=== PATIENT | female | born 1960 | race Caucasian/White ===

== ENCOUNTER 2018-05-07 06:10 | Inpatient (IN) | payer OTHER ==
[~2018-05-07] VITALS: Ht 157.5 cm; Wt 68.0 kg
[~2018-05-07 06:10] MED LIST: ALPR0.25 PO; ATOR1TAB PO
[2018-05-07] MEDS ORDERED: TRANEXAMIC ACID 20 ML ONE (06:52)
[2018-05-07] MEDS: BUPIVACAINE W/ EPINEPH 0.25% INJ 50ML MDV ONE ×2 (06:52→09:35)
[2018-05-07] MEDS: KETOROLAC TROMETH 30 MG/ML 1ML VIAL ONE ×2 (06:54→09:35)
[2018-05-07] MEDS ORDERED: VANCOMYCIN HCL 1000 MG VL ONE (06:54)
[2018-05-07] MEDS ORDERED: MORPHINE SULF(PF) 0.5MG/ML 10ML VIAL ONE (06:56)
[2018-05-07] MEDS ORDERED: ceFAZolin 1GM/50ML 100 ML IV ONE (07:07)
[2018-05-07] MEDS: CELECOXIB 100 MG CAP ONE ×2 (07:07→07:15)
[2018-05-07] MEDS ORDERED: ACETAMINOPHEN IV 100 ML IV ONE (07:07)
[2018-05-07] MEDS: PREGABALIN CAPSULE 75 MG CAP ONE ×2 (07:11→07:15)
[2018-05-07] MEDS ORDERED: PROPOFOL 10 MG/ML 20 ML IV ONE (07:23)
[2018-05-07] MEDS ORDERED: fentaNYL CITRATE 5 ML ONE (07:23)
[2018-05-07] MEDS ORDERED: ROCURONIUM 10MG/ML 10ML VIAL IV ONE (07:23)
[2018-05-07] MEDS ORDERED: MIDAZOLAM HCL 1MG/1ML-2 ML VIAL ONE (07:23)
[2018-05-07] MEDS ORDERED: HYDROmorphone HCL 2 MG/ML VL ONE (08:24)
[2018-05-07] MEDS ORDERED: OXYCODONE W/ ACETAMINOPHEN 5/325MG TABLET PO PRN (10:15)
[2018-05-07] MEDS ORDERED: MORPHINE SULFATE 4 MG/ML SYR/VIAL IV PRN (10:15)
[2018-05-07] MEDS ORDERED: ONDANSETRON HCL 4 MG/2 ML VIAL IV ONE (10:15)
[2018-05-07] MEDS ORDERED: ACETAMINOPHEN 325 MG TAB PO PRN (10:15)
[2018-05-07] MEDS ORDERED: hydrALAZINE HCL 20 MG/ML VL IV PRN (10:15)
[2018-05-07] MEDS ORDERED: PATIENTS OWN MEDICATION (Alprazolam (Xanax) 1 TAB) PO PRN (10:15)
[2018-05-07] MEDS ORDERED: traMADol HCL 50 MG TAB PO PRN (10:15)
[2018-05-07] MEDS ORDERED: ePHEDrine SULFATE 50 MG/ML AMP IV PRN (10:15)
[2018-05-07] MEDS ORDERED: HYDROmorphone HCL 2 MG/ML VL IV PRN (10:15)
[2018-05-07] MEDS ORDERED: NITROGLYCERIN 0.4 MG SL TAB SL PRN (10:15)
[2018-05-07] MEDS ORDERED: ALPRAZolam 0.25 MG TAB PO PRN (10:15)
[2018-05-07] MEDS ORDERED: BISACODYL 5 MG EC TAB PO PRN (10:15)
[2018-05-07] MEDS: LACTATED RINGER'S 1,000 ML IV SCH ×2 (11:49→20:04)
[2018-05-07 13:00] VITALS: BP 105/59
[2018-05-07] MEDS: KETOROLAC TROMETH 30 MG/ML 1ML VIAL IV SCH ×2 (13:44→23:07)
[2018-05-07] MEDS: SODIUM CHLOR 0.9% PF (SALINE LOCK) 10ML VIAL/SYR IV SCH ×2 (13:44→22:00)
[2018-05-07] MEDS: ceFAZolin 1GM/50ML 50 ML IV SCH ×2 (13:44→18:50)
[2018-05-07 17:00] VITALS: BP 115/66
[2018-05-07] MEDS: ONDANSETRON HCL 4 MG/2 ML VIAL IV PRN (20:15)
[2018-05-07] MEDS: MORPHINE SULFATE 4 MG/ML SYR/VIAL IV PRN (21:30)
[2018-05-07 22:00] VITALS: BP 115/58
[2018-05-07] MEDS: DOCUSATE SOD 100 MG CAP PO SCH (22:00)
[2018-05-07] MEDS: oxyCODONE ER 10 MG TAB PO SCH (23:10)
[2018-05-07] MEDS: CIPROFLOXACIN HCL 500 MG TAB PO SCH (23:10)
[2018-05-07] MEDS: ATORVASTATIN 20 MG TAB PO SCH (23:12)
[2018-05-08] MEDS: ceFAZolin 1GM/50ML 50 ML IV SCH (01:00)
[2018-05-08 05:00] VITALS: BP 116/67
[2018-05-08] MEDS: KETOROLAC TROMETH 30 MG/ML 1ML VIAL IV SCH ×3 (05:20→22:48)
[2018-05-08] MEDS: SODIUM CHLOR 0.9% PF (SALINE LOCK) 10ML VIAL/SYR IV SCH ×3 (06:00→22:00)
[2018-05-08] MEDS: LACTATED RINGER'S 1,000 ML IV SCH ×2 (06:31→11:00)
[2018-05-08 07:08] LABS: Basophils # (auto) 0 uL; Basophils % (auto) 0.4 % (0.0-2.0); Eosinophils # (auto) 0 uL; Eosinophils % (auto) 0.2 % (0.0-7.0); Hematocrit 31.1 % (36.0-46.0); Hemoglobin 10.5 g/dL (12.2-16.2); Lymphocytes # (auto) 1.2 uL; Lymphocytes % (auto) 15.9 % (10.0-50.0); Mean Corpuscular Hemoglobin 31.5 pg (28.0-32.0); Mean Corpuscular Hgb Conc. 33.7 g/dL (32.0-36.0); Mean Corpuscular Volume 93.4 fL (80.0-100.0); Monocytes # (auto) 0.6 uL; Monocytes % (auto) 8.4 % (0.0-12.0); Neutrophils # (auto) 5.5 uL; Neutrophils % (auto) 75.1 % (37.0-80.0); Platelet Count (auto) 156 10^3/uL (140-450); Red Blood Cells 3.33 10^6/uL (4.0-5.20); Red Cell Distribution Width 13.7 % (11.8-14.3); White Blood Cell 7.4 10^3/uL (4.4-10.8)
[2018-05-08 07:10] LABS: Potassium 3.6 mmol/L (3.5-5.1)
[2018-05-08 07:19] LABS: Albumin 2.8 g/dL (3.4-5.0); BUN/Creatinine Ratio 10.3; Calcium 8.3 mg/dL (8.5-10.1)
[2018-05-08 07:22] LABS: Bilirubin, Total 0.6 mg/dL (0.2-1.0); Total Protein 5.5 g/dL (6.4-8.2)
[2018-05-08] MEDS ORDERED: ceFAZolin 1GM/50ML 50 ML IV SCH (07:45)
[2018-05-08 09:00] VITALS: BP 105/60
[2018-05-08] MEDS: ONDANSETRON HCL 4 MG/2 ML VIAL IV PRN ×2 (09:53→22:45)
[2018-05-08] MEDS ORDERED: PATIENTS OWN MEDICATION (Atorvastatin Calcium 1 TAB) PO SCH (10:00)
[2018-05-08] MEDS: CIPROFLOXACIN HCL 500 MG TAB PO SCH (11:05)
[2018-05-08] MEDS: ENOXAPARIN SOD 40 MG/0.4 ML SYRINGE SC SCH (11:05)
[2018-05-08] MEDS: DOCUSATE SOD 100 MG CAP PO SCH ×2 (11:06→22:47)
[2018-05-08] MEDS: oxyCODONE ER 10 MG TAB PO SCH ×2 (11:07→22:47)
[2018-05-08 13:00] VITALS: BP 113/72
[2018-05-08 17:00] VITALS: BP 130/71
[2018-05-08] MEDS: MORPHINE SULFATE 4 MG/ML SYR/VIAL IV PRN (21:30)
[2018-05-08 22:00] VITALS: BP 116/56
[2018-05-08] MEDS: ATORVASTATIN 20 MG TAB PO SCH (22:46)
[2018-05-09] MEDS: LACTATED RINGER'S 1,000 ML IV SCH (01:18)
[2018-05-09 05:30] VITALS: BP 125/66
[2018-05-09] MEDS: SODIUM CHLOR 0.9% PF (SALINE LOCK) 10ML VIAL/SYR IV SCH ×2 (06:00→14:00)
[2018-05-09] MEDS: KETOROLAC TROMETH 30 MG/ML 1ML VIAL IV SCH ×2 (06:00→14:00)
[2018-05-09 08:00] VITALS: BP 128/64
[2018-05-09 08:12] LABS: Hematocrit 31.8 % (36.0-46.0); Hemoglobin 10.5 g/dL (12.2-16.2)
[2018-05-09 09:01] VITALS: BP 128/64
[2018-05-09] MEDS: DOCUSATE SOD 100 MG CAP PO SCH (10:30)
[2018-05-09] MEDS: ENOXAPARIN SOD 40 MG/0.4 ML SYRINGE SC SCH (10:31)
[2018-05-09] MEDS: oxyCODONE ER 10 MG TAB PO SCH (10:31)
[2018-05-09 12:09] VITALS: BP 129/71
[2018-05-09 12:49] VITALS: BP 129/71
== END 2018-05-09 15:11 | disposition home health service (06) | DRG 470 ==
LOC: SUR 06:10 → TELE-CENTR 06:11
PROVIDERS: ADMIT Orthopaedic Surgery Adult Reconstructive Orthopaedic Surgery; ATTEND Internal Medicine
PROC: 0SRB06Z Replacement of Left Hip Joint with Oxidized Zirconium on Polyethylene Synthetic Substitute, Open Approach (ICD-10-PCS; principal; 2018-05-07 06:45)
DX: M16.12 Unilateral primary osteoarthritis, left hip (principal); E78.5 Hyperlipidemia, unspecified; F41.9 Anxiety disorder, unspecified; M21.70 Unequal limb length (acquired), unspecified site
CPT/HCPCS: 36415; 72170; 73501; 80053; 80061; 83735; 85014; 85018; 85025; 86850; 86900; 86901; 87081; A4565; G0378; J0131; J0690; J1885; J2250; J2405; J2704

== ENCOUNTER 2018-05-20 22:09 | Inpatient (IN) | payer OTHER ==
[2018-05-19] MEDS: MIDAZOLAM DRIP 50 mg/50mL 50 ML IV SCH (22:50)
[~2018-05-20] VITALS: Ht 160 cm; Wt 75.3 kg
[2018-05-20 22:49] LABS: Hemoglobin 11.4 g/dL (12.2-16.2); Platelet Count (auto) 438 10^3/uL (140-450); Red Cell Distribution Width 16.2 % (11.8-14.3)
[2018-05-20 22:51] LABS: Hematocrit 38.6 % (36.0-46.0); Mean Corpuscular Hemoglobin 30.7 pg (28.0-32.0); Mean Corpuscular Hgb Conc. 29.4 g/dL (32.0-36.0); Mean Corpuscular Volume 104.4 fL (80.0-100.0); White Blood Cell 21.8 10^3/uL (4.4-10.8)
[2018-05-20] MEDS ORDERED: MIDAZOLAM DRIP 50 mg/50mL 50 ML IV ONE (22:51)
[2018-05-20 22:55] LABS: Basophils % (manual) 0 (0.0-2.0); Blast Cells 0; Eosinophils % (manual) 0 (0-7); Promyelocytes % 0; Reactive Lymphocytes 0
[2018-05-20 23:04] LABS: INR 1.15 (0.9-1.15); Partial Thromboplastin Time 46.4 sec (23.78-33.04); Prothrombin Time 12.2 sec (9.27-12.13)
[2018-05-20 23:08] LABS: Albumin 1.9 g/dL (3.4-5.0); BUN/Creatinine Ratio 11.9; Calcium 8.4 mg/dL (8.5-10.1); Potassium 4.5 mmol/L (3.5-5.1)
[2018-05-20 23:11] LABS: Bilirubin, Total 0.4 mg/dL (0.2-1.0); Total Protein 4.8 g/dL (6.4-8.2)
[2018-05-20 23:15] LABS: Band Neutrophils % (manual) 42; Lymphocytes % (manual) 12 (10.0-50.0); Metamyelocytes % 2; Monocytes % (manual) 5 (0-12); Myelocytes % 1
[2018-05-20] MEDS ORDERED: PANTOPRAZOLE 80 MG in SODIUM CHL 0.9% 60 ML IV ONE (23:45)
[2018-05-20] MEDS ORDERED: PANTOPRAZOLE 40 MG/10 ML VIAL IV ONE (23:45)
[2018-05-21] VITALS (60 sets, daily range): BP systolic 60–151; BP diastolic 31–113
[2018-05-21] MEDS ORDERED: PANTOPRAZOLE 40 MG/10 ML VIAL IV ONE (00:33)
[2018-05-21] MEDS ORDERED: MIDAZOLAM DRIP 50 mg/50mL 50 ML IV ONE (00:34)
[2018-05-21 01:09] LABS: Lactic Acid w/Reflex 12.5 mmol/L (0.4-2.0)
[2018-05-21] MEDS ORDERED: CEFTRIAXONE SODIUM 2 GM in D5W 5% 50 ML IV ONE (01:15)
[2018-05-21] MEDS ORDERED: ONDA4TAB5 PO (01:49)
[2018-05-21] MEDS ORDERED: PERCOT PO (01:49)
[2018-05-21] MEDS: MIDAZOLAM DRIP 50 mg/50mL 50 ML IV SCH ×3 (02:00→23:38)
[2018-05-21] MEDS ORDERED: cefTRIAXone SOD 1,000 MG VL ONE (03:05)
[2018-05-21] MEDS ORDERED: PHYTONADIONE (VIT K)10 MG/ML 1ML VIAL SUBCUT ONE (03:30)
[2018-05-21] MEDS: NOREPINEPHRINE 8 MG/250ML KIT 250 ML IV SCH ×4 (03:59→15:33)
[2018-05-21] MEDS ORDERED: MORPHINE SULFATE 4 MG/ML SYR/VIAL IV PRN (04:00)
[2018-05-21] MEDS ORDERED: SODIUM CHLORIDE 0.9% 1,000 ML IV SCH ×3 (04:00→20:00)
[2018-05-21] MEDS ORDERED: SODIUM CHLORIDE 0.9% 1,000 ML IV ONE (04:00)
[2018-05-21] MEDS ORDERED: DEXTROSE (50%) 50ML SYRG IV PRN (04:00)
[2018-05-21] MEDS ORDERED: NITROGLYCERIN 0.4 MG SL TAB SL PRN (04:00)
[2018-05-21] MEDS ORDERED: ACETAMINOPHEN 325 MG TAB PO PRN (04:00)
[2018-05-21] MEDS ORDERED: VANCOMYCIN PER PHARMACY 0 MG IV SCH (04:00)
[2018-05-21] MEDS ORDERED: ONDANSETRON HCL 4 MG/2 ML VIAL IV PRN (04:00)
[2018-05-21] MEDS ORDERED: TEMAZEPAM 15 MG CAP PO PRN (04:00)
[2018-05-21] MEDS ORDERED: ALBUTEROL SULF 2.5 MG/0.5ML(0.5%) NEB SOLN NEB PRN (04:00)
[2018-05-21] MEDS ORDERED: VANCOMYCIN 1GM/250ML 250 ML IV ONE (04:15)
[2018-05-21 04:24] LABS: Basophils # (auto) 0.1 uL; Basophils % (auto) 0.3 % (0.0-2.0); Eosinophils # (auto) 0 uL; Hematocrit 34.1 % (36.0-46.0); Hemoglobin 10.9 g/dL (12.2-16.2); Lymphocytes # (auto) 1.1 uL; Lymphocytes % (auto) 5.3 % (10.0-50.0); Mean Corpuscular Hemoglobin 30.4 pg (28.0-32.0); Monocytes # (auto) 0.9 uL; Monocytes % (auto) 4.3 % (0.0-12.0); Neutrophils # (auto) 19.5 uL; Neutrophils % (auto) 90.1 % (37.0-80.0); Nucleated Red Blood Cells % 0.3 %; Platelet Count (auto) 332 10^3/uL (140-450); Red Blood Cells 3.59 10^6/uL (4.0-5.20); Red Cell Distribution Width 14.4 % (11.8-14.3); White Blood Cell 21.6 10^3/uL (4.4-10.8)
[2018-05-21 04:25] LABS: Albumin 1.7 g/dL (3.4-5.0); BUN/Creatinine Ratio 16.4; Calcium 6.5 mg/dL (8.5-10.1)
[2018-05-21 04:30] LABS: Bilirubin, Total 0.3 mg/dL (0.2-1.0)
[2018-05-21] MEDS: PIPERACILLIN-TAZOB 2.25GM 50 ML IV SCH ×4 (04:30→22:22)
[2018-05-21] MEDS ORDERED: PANTOPRAZOLE 80 MG in SODIUM CHL 0.9% 60 ML IV SCH ×2 (05:00→10:00)
[2018-05-21] MEDS: POTASSIUM CHL 20MEQ/100ML 100 ML IV SCH ×2 (05:30→09:37)
[2018-05-21] MEDS: ACCU-CHEK COMFORT CURVE STRIP VI SCH ×3 (05:45→18:00)
[2018-05-21] MEDS: InsuLIN REG 1unit/0.01ml Soln (100units/ml) SC SCH ×3 (05:46→18:00)
[2018-05-21] MEDS ORDERED: ALBUMIN 5% 250 ML IV ONE ×2 (06:36→07:00)
[2018-05-21] MEDS ORDERED: VASOPRESSIN 50 UNITS in D5W 5% 247.5 ML IV SCH (07:15)
[2018-05-21] MEDS ORDERED: SODIUM BICARBONATE 8.4 % INJ 50ML VIAL IV ONE (08:01)
[2018-05-21] MEDS ORDERED: SODIUM BICARBONATE 50ML VIAL 100 ML in SOD CHL 0.45% 1,000 ML IV SCH (08:15)
[2018-05-21] MEDS ORDERED: PANTOPRAZOLE 40 MG TAB PO SCH (10:00)
[2018-05-21] MEDS ORDERED: VASOPRESSIN 20 UNIT/ML ONE (11:59)
[2018-05-21] MEDS ORDERED: VASOPRESSIN 50 UNITS in SODIUM CHL 0.9% 247.5 ML IV SCH ×5 (12:30→14:00)
[2018-05-21] MEDS ORDERED: fentaNYL Drip 2500mCg/250mlNS 250 ML IV SCH (12:40)
[2018-05-21] MEDS ORDERED: FLUCONAZOLE 200MG/100ML 100 ML IV ONE (12:45)
[2018-05-21] MEDS ORDERED: fentaNYL Drip 2500mCg/250mlNS 250 ML IV ONE (12:47)
[2018-05-21] MEDS ORDERED: ATROPINE SULF 1 MG/10ml SYR IV ONE (13:10)
[2018-05-21] MEDS ORDERED: EPINEPHrine HCL 1 MG/10 ML SYRG IV ONE (13:10)
[2018-05-21] MEDS ORDERED: SODIUM BICARBONATE 8.4% INJ 50ML SYRINGE IV ONE (13:10)
[2018-05-21] MEDS ORDERED: NOREPINEPHRINE BITARTRATE 32 MG in D5W 5% 218 ML IV SCH (16:35)
[2018-05-21] MEDS ORDERED: PHENYLEPHRINE INJ 80 MG in SODIUM CHL 0.9% 250 ML IV SCH (16:35)
[2018-05-21] MEDS ORDERED: PHENYLEPHRINE IV 250 ML IV ONE (16:42)
[2018-05-21] MEDS ORDERED: SOD CHL 0.45% 1,000 ML IV SCH (17:15)
[2018-05-21] MEDS: NOREPINEPHRINE BITARTRATE 32 MG in SODIUM CHL 0.9% 218 ML IV SCH ×2 (17:15→23:49)
[2018-05-21] MEDS ORDERED: ACETAMINOPHEN 650 mg PER 20 mL UD ONE (17:21)
[2018-05-21] MEDS ORDERED: ACETAMINOPHEN 650 mg PER 20 mL UD GT PRN (17:30)
[2018-05-21 17:53] LABS: Protein, Urine 202.3 mg/dL (0.0-11.9)
[2018-05-21] MEDS ORDERED: SODIUM CHLORIDE 0.9% 2,250 ML IV ONE (18:00)
[2018-05-21 18:09] LABS: Urine Amorphous Crystal FEW /hpf (None Seen); Urine Bacteria FEW /hpf (None Seen); Urine Blood 3+ /uL (Negative); Urine Hyaline Cast FEW /lpf (0 - 2); Urine Specific Gravity 1.018 (1.001-1.035); Urine WBC <1 /hpf (0 - 5)
[2018-05-21] MEDS: SODIUM BICARBONATE 50ML VIAL 100 ML in SOD CHL 0.45% 1,000 ML IV SCH (18:15)
[2018-05-21] MEDS ORDERED: SODIUM CHLORIDE 0.9% 2,000 ML IV ONE (18:15)
[2018-05-21 18:44] LABS: Basophils # (auto) 0.1 uL; Basophils % (auto) 0.5 % (0.0-2.0); Eosinophils # (auto) 0 uL; Hematocrit 28.2 % (36.0-46.0); Hemoglobin 9.1 g/dL (12.2-16.2); Lymphocytes % (auto) 8.5 % (10.0-50.0); Mean Corpuscular Hemoglobin 30.4 pg (28.0-32.0); Mean Corpuscular Hgb Conc. 32.3 g/dL (32.0-36.0); Monocytes # (auto) 0.6 uL; Monocytes % (auto) 4.7 % (0.0-12.0); Neutrophils # (auto) 10.4 uL; Neutrophils % (auto) 86.3 % (37.0-80.0); Nucleated Red Blood Cells % 0.3 %; Platelet Count (auto) 262 10^3/uL (140-450); Red Cell Distribution Width 14.9 % (11.8-14.3)
[2018-05-21 18:49] LABS: Alcohol, Urine < 3.0 mg/dL (0-5); Amphetamine Screen, Urine NEGATIVE (NEGATIVE); Barbiturate Scree,Urine NEGATIVE (NEGATIVE); Benzodiazephine Screen, Urine POSITIVE (NEGATIVE); Cannabinoid Screen, Urine POSITIVE (NEGATIVE); Cocaine Screen, Urine NEGATIVE (NEGATIVE); Opiate Scree,Urine NEGATIVE (NEGATIVE); Phencyclidine Screen, Urine NEGATIVE (NEGATIVE)
[2018-05-21 18:56] LABS: INR 1.78 (0.9-1.15); Partial Thromboplastin Time 42.1 sec (23.78-33.04); Prothrombin Time 18.4 sec (9.27-12.13)
[2018-05-21] MEDS ORDERED: HEPARIN DRIP/D5W 100UNITS/ML 250 ML IV SCH (20:00)
[2018-05-21] MEDS ORDERED: PANTOPRAZOLE 40 MG/10 ML VIAL IV SCH ×2 (22:00)
[2018-05-21] MEDS ORDERED: LINEZOLID 600MG/300ML 300 ML IV SCH (22:00)
[2018-05-22] VITALS (10 sets, daily range): BP systolic 119–195; BP diastolic 32–116
[2018-05-22] MEDS: InsuLIN REG 1unit/0.01ml Soln (100units/ml) SC SCH
[2018-05-22] MEDS: ACCU-CHEK COMFORT CURVE STRIP VI SCH
[2018-05-22] MEDS ORDERED: EPINEPHrine HCL INJECTION 4 MG in SODIUM CHL 0.9% 250 ML IV SCH (00:45)
[2018-05-22] MEDS ORDERED: EPINEPHrine HCL 250 ML IV ONE (00:56)
[2018-05-22 01:26] LABS: Basophils # (auto) 0 uL; Basophils % (auto) 0.3 % (0.0-2.0); Eosinophils # (auto) 0 uL; Eosinophils % (auto) 0.1 % (0.0-7.0); Hematocrit 34.1 % (36.0-46.0); Hemoglobin 10.9 g/dL (12.2-16.2); Lymphocytes # (auto) 0.8 uL; Lymphocytes % (auto) 4.8 % (10.0-50.0); Mean Corpuscular Hgb Conc. 31.8 g/dL (32.0-36.0); Mean Corpuscular Volume 94.3 fL (80.0-100.0); Monocytes # (auto) 0.7 uL; Monocytes % (auto) 4.2 % (0.0-12.0); Neutrophils # (auto) 14.6 uL; Neutrophils % (auto) 90.6 % (37.0-80.0); Nucleated Red Blood Cells % 0.3 %; Platelet Count (auto) 322 10^3/uL (140-450); Red Blood Cells 3.62 10^6/uL (4.0-5.20); White Blood Cell 16.1 10^3/uL (4.4-10.8)
[2018-05-22 01:41] LABS: Albumin 1.8 g/dL (3.4-5.0); Potassium 4.3 mmol/L (3.5-5.1)
[2018-05-22 01:44] LABS: INR 2.23 (0.9-1.15); Prothrombin Time 22.8 sec (9.27-12.13)
[2018-05-22 01:45] LABS: Magnesium 1.7 mg/dL (1.6-2.6); Phosphorus 4.6 mg/dL (2.5-4.90)
[2018-05-22 01:50] LABS: Calcium 5.7 mg/dL (8.5-10.1)
[2018-05-22 01:51] LABS: Bilirubin, Total 0.7 mg/dL (0.2-1.0); Total Protein 4.2 g/dL (6.4-8.2)
[2018-05-22 01:52] LABS: Partial Thromboplastin Time 160.6 sec (23.78-33.04)
[2018-05-22] MEDS ORDERED: SODIUM BICARBONATE 8.4 % INJ 50ML VIAL IV ONE ×2 (02:15→04:00)
[2018-05-22] MEDS ORDERED: MAGNESIUM SULFATE 1GM/100ML 100 ML IV ONE ×2 (02:15→02:22)
[2018-05-22] MEDS ORDERED: CALCIUM GLUC 4.65meq/50ml D5AE 50 ML IV ONE ×2 (02:15→03:15)
[2018-05-22] MEDS ORDERED: ALBUMIN 25% 100 ML IV ONE (02:15)
[2018-05-22] MEDS ORDERED: SODIUM BICARBONATE 8.4% INJ 50ML SYRINGE ONE ×2 (02:22→04:32)
[2018-05-22] MEDS ORDERED: D5AE IV ONE (02:25)
[2018-05-22] MEDS ORDERED: CALCIUM GLUC IV ONE (02:25)
[2018-05-22] MEDS ORDERED: PHENYLEPHRINE IV 250 ML IV ONE (04:15)
[2018-05-22] MEDS ORDERED: PHENYLEPHRINE HCL 10 MG/ML VL ONE (04:15)
[2018-05-22] MEDS: SODIUM BICARBONATE 50ML VIAL 100 ML in SOD CHL 0.45% 1,000 ML IV SCH (04:57)
[2018-05-22] MEDS: MIDAZOLAM DRIP 50 mg/50mL 50 ML IV SCH (05:03)
[2018-05-22] MEDS ORDERED: FLUCONAZOLE 200MG/100ML 100 ML IV SCH (10:00)
== END 2018-05-22 05:22 | disposition short-term general hospital (02) | DRG 871 ==
LOC: EDBD 22:09 → ER 22:09 → TELE 05-21 03:54 → ICU WEST 05-21 06:13
PROVIDERS: ADMIT Nurse Practitioner; ATTEND Internal Medicine
PROC: 02H633Z Insertion of Infusion Device into Right Atrium, Percutaneous Approach (ICD-10-PCS; principal; 2018-05-21)
PROC: 5A1935Z Respiratory Ventilation, Less than 24 Consecutive Hours (ICD-10-PCS; 2018-05-21)
PROC: 0BH17EZ Insertion of Endotracheal Airway into Trachea, Via Natural or Artificial Opening (ICD-10-PCS; 2018-05-21)
PROC: 5A12012 Performance of Cardiac Output, Single, Manual (ICD-10-PCS; 2018-05-21)
DX: A41.9 Sepsis, unspecified organism (principal); I63.9 Cerebral infarction, unspecified; J96.00 Acute respiratory failure, unspecified whether with hypoxia or hypercapnia; K72.00 Acute and subacute hepatic failure without coma; N17.0 Acute kidney failure with tubular necrosis; R65.21 Severe sepsis with septic shock; J69.0 Pneumonitis due to inhalation of food and vomit; K92.2 Gastrointestinal hemorrhage, unspecified; E78.5 Hyperlipidemia, unspecified; I10 Essential (primary) hypertension; Z96.642 Presence of left artificial hip joint; E86.1 Hypovolemia; F12.90 Cannabis use, unspecified, uncomplicated; Z83.3 Family history of diabetes mellitus; E66.01 Morbid (severe) obesity due to excess calories; Z68.29 Body mass index [BMI] 29.0-29.9, adult
CPT/HCPCS: 36415; 36430; 36556; 36600; 70450; 71045; 74176; 80053; 80202; 80307; 81001; 82150; 82570; 82805; 82962; 83036; 83605; 83690; 83735; 84100; 84156; 84300; 84484; 85007; 85025; 85027; 85379; 85610; 85730; 86850; 86900; 86901; 87040; 87070; 87081; 87086; 87205; 93306; 93970; 94002; 94003; 94640; 96361; 96365; 96367; 96375; 99291; C9113; G0378; J0171; J0610; J0696; J1450; J1815; J2250; J2543; J3430; J3480; J7060